=== PATIENT | male | born 2000 | race Asian ===

== ENCOUNTER 2020-02-09 12:33 | Emergency (ER) | payer OTHER ==
[~2020-02-09] VITALS: Ht 172.7 cm; Wt 68.2 kg
[2020-02-09 12:34] VITALS: BP 137/78
[2020-02-09] MEDS ORDERED: PSEU1TAB3 PO (13:18)
[2020-02-09] MEDS ORDERED: FLON27.5 NARES (13:18)
== END 2020-02-09 13:24 | disposition home or self-care (01) ==
LOC: M ED 12:33
DX: J00 Acute nasopharyngitis [common cold] (principal); H92.03 Otalgia, bilateral; R09.82 Postnasal drip; Z88.0 Allergy status to penicillin

== ENCOUNTER 2021-05-09 09:21 | Emergency (ER) | payer OTHER ==
[~2021-05-09] VITALS: Ht 175.3 cm; Wt 76.0 kg
[~2021-05-09 09:21] MED LIST: FLON27.5 NARES; PSEU1TAB3 PO
[2021-05-09 10:43] LABS: BASO # 0.1 10^3/uL (0.0-0.2); BASO % 0.5 % (0.0-1.0); EOS % 0.2 % (0.0-3.0); HEMATOCRIT 44.4 % (42.0-52.0); HEMOGLOBIN 15.2 g/dl (13.5-17.5); LYMPH # 1.1 10^3/uL (1.5-5.0); LYMPH % 8.7 % (24.0-44.0); MEAN CORPUSCULAR HEMOGLOBIN 29.9 pg (27.0-33.0); MEAN CORPUSCULAR HGB CONC 34.2 g/dl (32.0-36.5); MEAN CORPUSCULAR VOLUME 87.2 fl (80.0-96.0); MONO # 0.8 10^3/uL (0.0-0.8); MONO % 6.4 % (2.0-8.0); NEUTROPHILS # 10.1 10^3/uL (1.5-8.5); NEUTROPHILS % 82.8 % (36.0-66.0); PLATELET COUNT, AUTOMATED 354 10^3/uL (150-450); RED BLOOD COUNT 5.09 10^6/uL (4.30-6.10); WHITE BLOOD COUNT 12.2 10^3/uL (4.0-10.0)
[2021-05-09 10:48] LABS: INR 0.91; PARTIAL THROMBOPLASTIN TIME 28.1 SECONDS (25.9-37.0); PROTHROMBIN TIME 12.6 SECONDS (12.7-14.5)
[2021-05-09 11:35] LABS: BLOOD UREA NITROGEN 16 MG/DL (7-18); CALCIUM LEVEL 9.1 MG/DL (8.5-10.1); CARBON DIOXIDE LEVEL 25 MEQ/L (21-32); CHLORIDE LEVEL 106 MEQ/L (98-107); CK-MB VALUE MASS 3.3 NG/ML (<3.6); CPK CREATINE PHOSPHOKINASE 658 U/L (39-308); CREATININE FOR GFR 1.42 MG/DL (0.70-1.30); GLOMERULAR FILTRATION RATE > 60.0 (>60); GLUCOSE, FASTING 101 MG/DL (70-100); POTASSIUM SERUM 4.4 MEQ/L (3.5-5.1); SODIUM LEVEL 139 MEQ/L (136-145); TROPONIN I < 0.02 NG/ML (< 0.10)
[2021-05-09] MEDS ORDERED: NS 1,000 ML IV ONE (12:20)
[2021-05-09 14:30] VITALS: BP 153/89
== END 2021-05-09 14:48 | disposition home or self-care (01) ==
LOC: M ED 09:21
DX: R55 Syncope and collapse (principal); Z88.0 Allergy status to penicillin

== ENCOUNTER 2022-04-08 20:55 | Emergency (ER) | payer OTHER ==
[~2022-04-08] VITALS: Ht 172.7 cm; Wt 76.8 kg
[2022-04-09] MEDS ORDERED: ISOVUE-370 76% 100ML VIAL As Ordered ONE (04:54)
[2022-04-09] MEDS ORDERED: LIDOCAINE 1% MDV 20ML VIAL SC ONE (06:35)
[2022-04-09] MEDS ORDERED: CEPH500C PO (07:25)
[2022-04-09] MEDS ORDERED: NEOSPORIN OINT 0.9 GM PKT TOP ONE (07:25)
[2022-04-09] MEDS ORDERED: CEPHALEXIN 500 MG CAP PO ONE (07:25)
[2022-04-09 07:41] VITALS: BP 133/81
== END 2022-04-09 07:43 | disposition home or self-care (01) ==
LOC: M ED 20:55
DX: S01.83XA Puncture wound without foreign body of other part of head, initial encounter (principal); W54.0XXA Bitten by dog, initial encounter; Y92.009 Unspecified place in unspecified non-institutional (private) residence as the place of occurrence of the external cause; Y93.9 Activity, unspecified; Y99.9 Unspecified external cause status
CPT/HCPCS: 12013; 70498; 80047; 99284; Q9967

== ENCOUNTER 2022-04-17 07:49 | Emergency (ER) | payer OTHER ==
[~2022-04-17] VITALS: Ht 172.7 cm; Wt 73.4 kg
[~2022-04-17 07:49] MED LIST changes: +CEPH500C PO
[2022-04-17 07:50] VITALS: BP 160/78
== END 2022-04-17 09:00 | disposition home or self-care (01) ==
LOC: M ED 07:49
DX: Z48.02 Encounter for removal of sutures (principal); Z88.0 Allergy status to penicillin